=== PATIENT | male | born 1955 | race Caucasian/White ===

== ENCOUNTER 2017-11-12 05:50 | Day surgery (SDC) | payer BC ==
[~2017-11-12] VITALS: Ht 180.3 cm; Wt 79.4 kg
--- NOTE | ~2017-11-12 | OP ---
PATIENT NAME: RANDOLPH YING MEDICAL RECORD: [id number] :55 [facility] ADMISS[facility] DATE: SURGEON: RAEANN DAVISON MD DATE OF OPERATION: 11/12/2017 SURGEON: Raeann Davison MD ANESTHESIA: MAC by Maia Hart CRNA PREOPERATIVE DIAGNOSIS: Elevated PSA 5.86. PROCEDURE: Transrectal ultrasound and prostate biopsy. SPECIMENS: Prostate biopsy cores. FINDINGS: A 70 gram prostate with prostatic stones and hypoechoic areas internally. ESTIMATED BLOOD LOSS: None. CLINICAL HISTORY: This is a 62-year-old male, who has an elevated PSA of 5.86. A few years ago, he did have an elevated PSA about 10 and went back into the normal range, it is high again now. He has minimal voiding symptoms except for nocturia times 2. His father had BPH, but not prostate cancer. On rectal examination, he has enlarged prostate about 60 grams with no nodules palpable. He comes today to have a prostate biopsy. He is aware of the risk of infection and he has been taking prophylactic antibiotics for at least the past 2 days. He also uses a Fleet enema the evening before to clean up the rectum. 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 DESCRIPTION OF PROCEDURE: The patient was given IV sedation. He was then placed in dorsal lithotomy position. The transrectal ultrasound probe was placed into the prostate and prostate size measurements were obtained. We obtained a size of 70 mL or 70 grams. Visualizing the prostate, he has a cluster of small prostatic stones overlying the layer between the adenoma and the compress pseudocapsule of the prostate. The adenoma is in the transition zone. Within the prostate substance, we see hypoechoic areas also. Sextant biopsies were obtained with at least 3 cores from each sextant. Once all the cores were obtained, the procedure was terminated. The patient was brought back to the preoperative holding area. I will be reviewing the pathology with him next week. TRANSINT:[id number] Voice Confirmation ID: [id number] DOCUMENT ID: [id number] RAEANN DAVISON MD at 1101 CC: [id number] DICTATION DATE: 11/12/17 1439 PROPELLANT ASSEMBLER: 11/12/17 1607 [facility] 11/12/17 [facility] [address] [place] [address]
[~2017-11-12 05:50] MED LIST: CELEXA40 MG PO; ZANTAC150 MG PO
[2017-11-12] MEDS ORDERED: BACTRIM 400-801 TAB PO (11:09)
[2017-11-12 11:10] VITALS: BP 122/73; Ht 180.3 cm; Wt 79.4 kg
== END 2017-11-12 15:50 | disposition home or self-care (01) ==
LOC: D.OPS 05:50 → D.PAN 12:15 → D.OPS 12:15
DX: R97.20 Elevated prostate specific antigen [PSA] (principal); K21.9 Gastro-esophageal reflux disease without esophagitis; Z01.812 Encounter for preprocedural laboratory examination

== ENCOUNTER 2018-02-25 19:27 | Emergency (ER) | payer OTHER ==
[2017-11-12 11:10] VITALS: BMI 24.4
[~2018-02-25 19:27] MED LIST changes: +BACTRIM 400-801 TAB PO
== END 2018-02-25 21:08 | disposition home or self-care (01) ==
LOC: D.ER 19:27
DX: S50.812A Abrasion of left forearm, initial encounter (principal); W50.4XXA Accidental scratch by another person, initial encounter; Y93.89 Activity, other specified; Y92.238 Other place in hospital as the place of occurrence of the external cause